=== PATIENT | female | born 1965 | race Two or more races ===

== ENCOUNTER 2020-06-18 18:47 | Inpatient (IN) | payer BC ==
[~2020-06-18] VITALS: Ht 152.4 cm; Wt 61.7 kg
--- NOTE | 2020-06-18 19:44 | NUR ---
BATOOL FROM PLACED OF EMPLOYEMENT, TO ER BED 12. AAOX4. NOT IN RESP DISTRESS, BREATHING EVEN AND UNLABORED. BROUGHT IN FOR A NEARSYNCOPAL EPISODE AND PALPITATION. PER PT, SHE WAS SITTING AND DOING HER CHARTING ON THE COMPUTER WHEN ALL OF A SUDDEN SHE FELT IF SHE WAS ABOUT TO FAINT AND HAD PALPITATION. PT ALSO REPORTS THAT SHE HAD A BLURRED VISSION WHEN THE EPISODE HAPPENED. DENIED PASSING OUT, REMEMEBERS EVERYTHING. MD WAS AT THE BEDSIDE FOR EVAL. ORDERS RECEIVED, NOTED AND CARRIED OUT. IV LINE ESTABLISHED ON R AC 20G, BLOOD DRAWN AND GIVEN TO DIGITAL MEDIA MANAGER AT BEDSIDE. PT ON MONITOR.
[2020-06-18 19:54] LABS: BASOPHILS # (AUTO) 0.1 /CMM (0.0-0.2); BASOPHILS % (AUTO) 1.6 % (0.0-2.0); CALCIUM, SERUM 8.8 mg/dL (8.5-10.1); CARBON DIOXIDE 27 mmol/L (21-32); CHLORIDE 102 mmol/L (98-107); CREATININE 0.9 mg/dL (0.6-1.3); EOSINOPHILS % (AUTO) 5.7 % (0.0-6.0); GLUCOSE 208 mg/dL (74-106); HEMATOCRIT 40 % (33-45); HEMOGLOBIN 13.2 g/dL (11.5-14.8); LYMPHOCYTES # (AUTO) 2.3 /CMM (0.8-4.8); LYMPHOCYTES % (AUTO) 36.9 % (20.0-44.0); MEAN CORPUSCULAR HGB CONC 33 g/dl (31.0-36.0); MEAN CORPUSCULAR VOLUME 90 fL (82-100); MONOCYTES # (AUTO) 0.4 /CMM (0.1-1.30); MONOCYTES % (AUTO) 6.7 % (2.0-12.0); NEUTROPHILS # (AUTO) 3.1 /CMM (1.8-8.9); NEUTROPHILS % (AUTO) 49.1 % (43.0-81.0); PLATELET COUNT (AUTO) 358 /CMM (150-450); POTASSIUM 3.6 mmol/L (3.5-5.1); RED BLOOD CELL COUNT(AUTO) 4.43 MIL/uL (4.0-5.2); SODIUM SERUM 139 mmol/L (136-145); UREA NITROGEN, BLOOD 15 mg/dL (7-18); WHITE BLOOD COUNT (AUTO) 6.2 K/uL (4.3-11.0)
[2020-06-18 19:59] LABS: ALANINE AMINOTRANSFERASE 66 U/L (12-78); ALKALINE PHOSPHATASE 82 U/L (46-116); ASPARTATE AMINOTRANSFERASE 48 U/L (15-37); BILIRUBIN,DIRECT 0.1 mg/dL (0.0-0.2); BILIRUBIN,TOTAL 0.3 mg/dL (0.2-1.0); TOTAL PROTEIN, SERUM 8.4 g/dL (6.4-8.2)
[2020-06-18 20:34] LABS: BILIRUBIN,URINE NEGATIVE (NEGATIVE); COLOR,URINE YELLOW (YELLOW); LEUKOCYTE ESTERASE ,URINE TRACE (NEGATIVE); NITRITE, URINE NEGATIVE (NEGATIVE); PH,URINE 5.5 (5.0-8.0); PROTEIN,URINE NEGATIVE (NEGATIVE); UGLUCOSE NEGATIVE (NEGATIVE); UROBILINOGEN,URINE 0.2 EU/dL (0.2)
[2020-06-18 20:40] LABS: BACTERIA,URINE None seen /HPF (None Seen); RBC,URINE 0-2 /HPF (0-2)
--- NOTE | 2020-06-18 20:53 | NUR ---
CALL FROM LAB. RAPID COVID NEGATIVE.
--- NOTE | 2020-06-18 20:59 | NUR ---
TELE 306-2
[2020-06-18] MEDS ORDERED: ASPIRIN EC 81 MG TABLET.DR PO ONE (21:00)
[2020-06-18] MEDS ORDERED: ASPIRIN 81 MG TAB.CHEW PO ONE (21:00)
--- NOTE | 2020-06-18 21:17 | NUR ---
REPORT GIVEN TO MIGUELITO LOMBARDO FOR BHANU
[2020-06-18 21:30] VITALS: BP 156/87
[2020-06-18] MEDS ORDERED: ZOLPIDEM TARTRATE 5 MG TABLET PO PRN (21:30)
[2020-06-18] MEDS ORDERED: MORPHINE SULFATE INJ 2 MG/ML DISP.SYRIN IV PRN (21:30)
[2020-06-18] MEDS ORDERED: ACETAMINOPHEN 325 MG TABLET PO PRN (21:30)
[2020-06-18] MEDS ORDERED: HYDROCODONE/APAP 5/325MG TABLET PO PRN (21:30)
[2020-06-18] MEDS ORDERED: MAG HYDROX/AL HYDROX/SIMETH 30 ML UDC PO PRN (21:30)
[2020-06-18] MEDS ORDERED: CLONIDINE HCL 0.1 MG TABLET PO PRN (21:30)
[2020-06-18] MEDS ORDERED: MAGNESIUM HYDROXIDE 30 ML UDC PO PRN (21:30)
[2020-06-18] MEDS ORDERED: ONDANSETRON HCL/PF 4 MG/2 ML VIAL IVP PRN (21:30)
--- NOTE | 2020-06-18 21:41 | NUR ---
PT TRANMSPORTED TO UNIT ON [facility] WITH EMT AND RN AT BEDSIDE W/ ACLS PROTOCOL. NAD NOTED DUING TRANSPORT. PT AMBULATED FROM RNEY TO BED ON STEADY GAIT W/O ASSIST.
--- NOTE | 2020-06-18 21:45 | NUR ---
TELE/RN ADMITTING NOTE RECEIVED PATIENT FROM ER VIA [facility] AND 2 STAFF MEMBERS. PATIENT IS ALERT AND ORIENTED X 4. ABLE TO MAKE NEEDS KNOWN. ABLE TO AMBULATE FROM GURNEY TO BED WITH NO ASSIST. STEADY GAIT NOTED. PATIENT DENIES PAIN AT THIS TIME. PATIENT WILL BE TELE. IV ACCESS TO RIGHT AC #20G INTACT AND PATENT. CONTINUES ON PO ABX FOR UTI. RESPIRATIONS EVEN AND UNLABORED. NO COMPLAINTS OF DIZZINESS, NAUSEA, VOMITING OR PALPITATIONS NOTED. PATIENT ORIENTED TO ROOM AND UNIT. CALL LIGHT WITHIN REACH. ASPIRATION, FALL AND SAFETY PRECAUTIONS MAINTAINED. WILL CONTINUE TO MONITOR.
[2020-06-18] MEDS: CEPHALEXIN MONOHYDRATE 500 MG CAPSULE PO SCH (22:24)
[2020-06-18 22:38] VITALS: BP 156/87
--- NOTE | 2020-06-18 23:53 | NUR ---
TELE/RN NOTE PATIENT WITH INCREASED BLOOD PRESSURE OF 162/92 HR 81. NO S/SX DIZZINESS, SOB, CHEST PAIN OR HEADACHES NOTED. PATIENT HAS PRN CLONIDINE ON MEDICATION LIST. WILL ADMINISTER AND RECHECK BP.
[2020-06-18 23:55] VITALS: BP 162/92
[2020-06-19 01:00] VITALS: BP 140/72
--- NOTE | 2020-06-19 01:00 | NUR ---
TELE/RN NOTE BP RECHECK 140/72. PATIENT RESTING IN BED. WILL CONTINUE TO MONITOR.
[2020-06-19 05:00] VITALS: BP 121/74
[2020-06-19 05:51] LABS: BASOPHILS # (AUTO) 0.1 /CMM (0.0-0.2); BASOPHILS % (AUTO) 1.2 % (0.0-2.0); EOSINOPHILS % (AUTO) 4.2 % (0.0-6.0); HEMATOCRIT 36 % (33-45); HEMOGLOBIN 12.4 g/dL (11.5-14.8); LYMPHOCYTES # (AUTO) 2.7 /CMM (0.8-4.8); LYMPHOCYTES % (AUTO) 36.2 % (20.0-44.0); MEAN CORPUSCULAR HGB CONC 34 g/dl (31.0-36.0); MEAN CORPUSCULAR VOLUME 89 fL (82-100); MONOCYTES # (AUTO) 0.6 /CMM (0.1-1.30); MONOCYTES % (AUTO) 7.8 % (2.0-12.0); NEUTROPHILS # (AUTO) 3.8 /CMM (1.8-8.9); NEUTROPHILS % (AUTO) 50.6 % (43.0-81.0); PLATELET COUNT (AUTO) 345 /CMM (150-450); RED BLOOD CELL COUNT(AUTO) 4.05 MIL/uL (4.0-5.2); WHITE BLOOD COUNT (AUTO) 7.5 K/uL (4.3-11.0)
--- NOTE | 2020-06-19 06:10 | NUR ---
TELE/RN CLOSING NOTE PATIENT CURRENTLY SLEEPING IN BED. ALERT AND ORIENTED X 4. ABLE TO MAKE NEEDS KNOWN. NO COMPLAINTS OF PAIN AT THIS TIME. TELE MONITOR READING SR/ST DEPRESSION WITH HR 91. PATIENT TO HAVE CARDIOLOGY CONSULT THIS AM. NO S/SX OF SOB, CHEST PAIN, PALPITATIONS OR DIZZINESS NOTED. IV ACCESS TO RIGHT AC INTACT, PATENT AND SALINE LOCKED. CONTINUES ON KEFLEX FOR UTI. CALL LIGHT WITHIN REACH. ASPIRATION, FALL AND SAFETY PRECAUTIONS MAINTAINED. WILL ENDORSE PLAN OF CARE TO ONCOMING SHIFT.
[2020-06-19] MEDS ORDERED: LOSA100T31 PO (07:22)
[2020-06-19] MEDS ORDERED: AMLO-212 PO (07:22)
[2020-06-19] MEDS ORDERED: ASPI-1169 PO (07:22)
[2020-06-19 07:45] LABS: ALBUMIN 3.5 g/dL (3.4-5.0); BILIRUBIN,TOTAL 0.3 mg/dL (0.2-1.0); CREATININE 0.8 mg/dL (0.6-1.3); MAGNESIUM 2.3 mg/dL (1.8-2.4); PHOSPHORUS 4.1 mg/dL (2.5-4.9); POTASSIUM 3.7 mmol/L (3.5-5.1); TOTAL PROTEIN, SERUM 7.5 g/dL (6.4-8.2)
--- NOTE | 2020-06-19 07:59 | NUR ---
RN OPENING NOTES Patient is alert and oriented. Patient is breathing even and unlabored. No c/o chest pain or dizziness or palpitations. iV SITE TO RIGHT AC, patent and intact. Patient seen by Dr Cartagena and Per Md patient can eat breakfast.Patient will be monitored. Call light with in reach.
[2020-06-19 08:01] LABS: THYROID STIMULATING HORMONE 1.691 uIU/mL (0.358-3.74)
[2020-06-19] MEDS: CEPHALEXIN MONOHYDRATE 500 MG CAPSULE PO SCH (08:26)
[2020-06-19] MEDS ORDERED: ATORVASTATIN 10 MG TABLET PO SCH (09:00)
[2020-06-19] MEDS ORDERED: AMLODIPINE BESYLATE 5 MG TABLET PO SCH (09:00)
[2020-06-19] MEDS ORDERED: LOSARTAN POTASSIUM 50 MG TABLET PO SCH (09:00)
[2020-06-19] MEDS ORDERED: ASPIRIN 81 MG TAB.CHEW PO SCH ×2 (09:00→18:00)
--- NOTE | 2020-06-19 09:07 | NUR ---
Patient approved to have breakfast by md horton
--- NOTE | 2020-06-19 10:08 | NUR ---
Patient seen by MD DIAZ AND CHRISTOPH KRUSE and pharmacy number of choice provided. Report given to another nurse prior to leaving the unit.
[2020-06-19] MEDS: METFORMIN 500 MG TABLET PO SCH ×2 (10:38→18:12)
[2020-06-19] MEDS ORDERED: IV NS 0.9% 1,000 ML IV ONE (11:00)
[2020-06-19] MEDS ORDERED: CEPH500C2 PO (11:54)
[2020-06-19] MEDS ORDERED: METF-440 PO (11:54)
[2020-06-19] MEDS ORDERED: ATOR10TA PO (11:54)
--- NOTE | 2020-06-19 15:40 | NUR ---
MS/RN NOTE CURRENT ORTHOSTATIC BP WAS CHECKED: LAYING 142/86 SITTING 140/82 STANDING 132/74 ROSELINE HAWTHORNE NOTIFIED AND CLEARED FOR DISCHARGE, PER DR. DIAZ TO FOLLOW UP IN 1 WEEK.
[2020-06-19 15:49] VITALS: BP 128/63
--- NOTE | 2020-06-19 18:18 | NUR ---
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 NAME BAND AND IV ACCESS REMOVED, APPLIED PRESSURE DRESSING. ALL PERSONAL BELONGINGS ACCOUNTED AND SIGNED OFF FOR IN BELONGINGS LIST. INFORMED PATIENT ON DISCHARGE INSTRUCTIONS AND NEW MEDICATIONS PRESCRIPTION. EDUCATED PATIENT ON SIDE EFFECTS OF MEDICATIONS. COPY OF EXIT CARE/DISCHARGE PAPER WORK GIVEN TO PATIENT ALONG WITH EXCUSE FROM WORK UNTIL 06/23. REMINDED PATIENT TO FOLLOW UP WITH DR. DIAZ IN 1 WEEK. PATIENT VERBALIZED UNDERSTANDING. PATIENT LEFT UNIT FLOOR WALKING IN MEDICALLY STABLE CONDITION, PRESENT FOR DISCHARGE, PATIENT LEFT HOME IN PRIVATE CAR.
== END 2020-06-19 18:43 | disposition home or self-care (01) | DRG 74 ==
LOC: ER 18:54 → TELE 20:58
PROVIDERS: ADMIT Nurse Practitioner Acute Care; ATTEND Registered Nurse
DX: G90.8 Other disorders of autonomic nervous system (principal); N39.0 Urinary tract infection, site not specified; I10 Essential (primary) hypertension; E11.65 Type 2 diabetes mellitus with hyperglycemia; E78.5 Hyperlipidemia, unspecified; R00.2 Palpitations; R94.31 Abnormal electrocardiogram [ECG] [EKG]; D64.9 Anemia, unspecified; F41.9 Anxiety disorder, unspecified; Z83.3 Family history of diabetes mellitus; Z20.822 Contact with and (suspected) exposure to COVID-19
CPT/HCPCS: 36415; 71045-TC; 80048-TC; 80053-TC; 80061-TC; 80076-TC; 81001; 82728-TC; 83540-TC; 83735-TC; 84100-TC; 84439-TC; 84443-TC; 84484-TC; 85025-TC; 87081-TC; C9803; G0378; J7030